=== PATIENT | female | born 1995 | race Caucasian/White ===

== ENCOUNTER 2021-12-28 14:04 | Inpatient (IN) | payer BC ==
[2021-12-28] MEDS ORDERED: Ondansetron 4 MG/2 ML SDV IVPUSH PRN (14:13)
[2021-12-28] MEDS ORDERED: Sodium Chloride 0.9% 10 ML Syringe FLUSH PRN (14:13)
[2021-12-28] MEDS ORDERED: Nalbuphine HCl 10 MG/ 1ML Amp IVPUSH PRN (14:13)
[2021-12-28] MEDS ORDERED: Oxytocin/Lactated Ringers 10 UNIT/1,000 ML BAG IV SCH ×2 (14:15→21:00)
[2021-12-28] MEDS ORDERED: Misoprostol 25 MCG (1/4 of 100 MCG) Tab VAG ONE (15:30)
[2021-12-28] MEDS: LABETALOL 100 MG PO SCH (21:00)
[2021-12-28] MEDS ORDERED: Levothyroxine 50 MCG Tab **OWN MED PO SCH (21:00)
[2021-12-28] MEDS ORDERED: LABETALOL 100 MG PO SCH (21:00)
[2021-12-28] MEDS ORDERED: Levothyroxine 50 MCG Tab PO SCH (21:00)
[2021-12-28] MEDS: Lactated Ringers 1,000 ML IV SCH (21:02)
[2021-12-28] MEDS: Sodium Chloride 0.9% 10 ML Syringe FLUSH SCH (21:05)
[2021-12-28] MEDS ORDERED: fentaNYL 100 MCG/2 ML SDV ONE (22:41)
[2021-12-28] MEDS ORDERED: Bupivacaine/fentaNYL/NS 100 ML Bag ONE (22:42)
[2021-12-28] MEDS ORDERED: fentaNYL 100 MCG/2 ML SDV EPIDUR PRN (23:43)
[2021-12-28] MEDS ORDERED: Bupivacaine/fentaNYL/NS 100 ML Bag EPIDUR PRN (23:43)
[2021-12-28] MEDS ORDERED: diphenhydrAMINE 50 MG/ML SDV IVPUSH PRN (23:43)
[2021-12-29] MEDS: Lactated Ringers 1,000 ML IV SCH (00:04)
[2021-12-29] MEDS: ePHEDrine 50 MG/ML SDV IVPUSH PRN ×5 (02:54→04:00)
[2021-12-29] MEDS ORDERED: Bupivacaine 0.25% 10 ML SDV ONE (07:00)
[2021-12-29] MEDS ORDERED: Docusate Sodium 100 MG Cap PO PRN (09:34)
[2021-12-29] MEDS ORDERED: Witch Hazel Medicated Pads 40/Jar TOP PRN (09:34)
[2021-12-29] MEDS ORDERED: Benzocaine/Menthol 20%-0.5% Spray 78 GM Cannister TOP PRN (09:34)
[2021-12-29] MEDS: LABETALOL 100 MG PO SCH (12:54)
[2021-12-29] MEDS: Sodium Chloride 0.9% 10 ML Syringe FLUSH SCH (12:56)
[2021-12-29] MEDS: Acetaminophen 325 MG Tab PO PRN (19:53)
[2021-12-30] MEDS: Acetaminophen 325 MG Tab PO PRN ×3 (03:31→17:57)
[2021-12-30] MEDS: Ibuprofen 600 MG Tab PO PRN ×4 (03:32→22:00)
== END 2021-12-31 08:55 | disposition home or self-care (01) | DRG 560 ==
LOC: JD.OBCHECK 14:04 → JD.OB 14:08 → JD.OBCHECK 14:22 → OBSVTOIN 12-29 07:59 → JD.OB 12-29 08:00 → EDSTATUS 01-07 14:03
PROVIDERS: ADMIT Obstetrics & Gynecology; ATTEND Obstetrics & Gynecology
PROC: 10E0XZZ Delivery of Products of Conception, External Approach (ICD-10-PCS; principal; 2021-12-29)
PROC: 0KQM0ZZ Repair Perineum Muscle, Open Approach (ICD-10-PCS; 2021-12-29)
PROC: 3E0R3BZ Introduction of Anesthetic Agent into Spinal Canal, Percutaneous Approach (ICD-10-PCS; 2021-12-29)
PROC: 00HU33Z Insertion of Infusion Device into Spinal Canal, Percutaneous Approach (ICD-10-PCS; 2021-12-29)
DX: O13.4 Gestational [pregnancy-induced] hypertension without significant proteinuria, complicating childbirth (principal); Z37.0 Single live birth; O70.1 Second degree perineal laceration during delivery; Z3A.38 38 weeks gestation of pregnancy; O99.284 Endocrine, nutritional and metabolic diseases complicating childbirth; E03.9 Hypothyroidism, unspecified
CPT/HCPCS: 36415; 51702; 59025; 59409; 82565; 82570; 83615; 84156; 84450; 84460; 84520; 84550; 85025; 86592; 86850; 86900; 86901; A9270-GY; C1726; J2590; J3010; J3490; J7120

== ENCOUNTER 2023-05-20 03:06 | Inpatient (IN) | payer BC ==
[2023-05-20] MEDS ORDERED: Lidocaine 1% 10 ML MDV ONE (08:00)
[2023-05-20] MEDS ORDERED: Nalbuphine HCl 10 MG/ 1ML Amp IVPUSH PRN (19:11)
[2023-05-20] MEDS ORDERED: Sodium Chloride 0.9% 10 ML Syringe FLUSH PRN (19:11)
[2023-05-20] MEDS ORDERED: Lidocaine 1% 50 ML MDV INJECT PRN (19:11)
[2023-05-20] MEDS ORDERED: Ondansetron 4 MG/2 ML SDV IVPUSH PRN (19:11)
[2023-05-20] MEDS ORDERED: Oxytocin/Lactated Ringers 30 UNIT/500 ML BAG IV SCH ×2 (19:15)
[2023-05-20 19:30] LABS: BASOPHILS PERCENT AUTO 0.5 % (0.0-1.0); EOSINOPHILS ABSOLUTE AUTO 0.1 K/mm3 (0.0-0.4); HEMATOCRIT 37.1 % (37.0-47.0); HEMOGLOBIN 12.8 gm/dl (12.0-16.0); IMMATURE GRAN ABSOLUTE AUTO 0.11 K/mm3 (0.00-0.05); IMMATURE GRAN PERCENT AUTO 1.2 % (0.0-0.4); LYMPHOCYTES PERCENT AUTO 22.1 % (24.0-44.0); MEAN CORPUSCULAR HEMOGLOBIN 31.3 pg (28.0-32.0); MEAN CORPUSCULAR HGB CONC 34.5 g/dl (32.0-36.0); MEAN CORPUSCULAR VOLUME 90.7 fl (83.0-99.0); MEAN PLATELET VOLUME 8.9 fl (9.4-12.3); MONOCYTES ABSOLUTE AUTO 0.4 K/mm3 (0.0-0.8); MONOCYTES PERCENT AUTO 4.8 % (0.0-8.0); NEUTROPHILS ABSOLUTE AUTO 6.2 K/mm3 (1.8-7.7); NEUTROPHILS PERCENT AUTO 70.4 % (41.0-71.0); PLATELET COUNT,PLT 195 K/mm3 (150-400); RED BLOOD CELL COUNT 4.09 M/mm3 (4.10-5.30); WHITE BLOOD CELL COUNT,WBC 8.83 K/mm3 (3.9-11.3)
[2023-05-20 19:58] LABS: ALANINE AMINOTRANSFERASE,ALT 19 U/L (14-59); ASPARTATE AMNIOTRANSFERASE,AST 15 U/L (15-37); CREATININE 0.7 mg/dL (0.55-1.02); ESTIMATED GFR 121 mL/min (>60)
[2023-05-20] MEDS: Lactated Ringers 1,000 ML IV SCH (20:02)
[2023-05-20 20:32] LABS: CREATININE,URINE RAND 78.3 mg/dL (30.0-125.0); PROTEIN CREATININE RATIO,URINE 97.1 mg/g (0-149); PROTEIN,URINE RANDOM 7.6 mg/dL (0.0-11.8)
[2023-05-20] MEDS ORDERED: Sodium Chloride 0.9% 10 ML Syringe FLUSH SCH (21:00)
[2023-05-21] MEDS ORDERED: Phenylephrine 1% 10 MG/ML SDV IVPUSH PRN (00:14)
[2023-05-21] MEDS ORDERED: ePHEDrine 50 MG/ML SDV IVPUSH PRN (00:14)
[2023-05-21] MEDS ORDERED: fentaNYL 100 MCG/2 ML SDV EPIDUR PRN (00:14)
[2023-05-21] MEDS ORDERED: diphenhydrAMINE 50 MG/ML SDV IVPUSH PRN (00:14)
[2023-05-21] MEDS ORDERED: Bupivacaine/fentaNYL/NS 100 ML Bag EPIDUR PRN (00:14)
[2023-05-21] MEDS: Lactated Ringers 1,000 ML IV SCH (01:10)
[2023-05-21] MEDS ORDERED: Benzocaine/Menthol 20%-0.5% Spray 78 GM Cannister TOP PRN (03:33)
[2023-05-21] MEDS ORDERED: Acetaminophen 325 MG Tab PO PRN (03:33)
[2023-05-21] MEDS ORDERED: Docusate Sodium 100 MG Cap PO PRN (03:33)
[2023-05-21] MEDS ORDERED: Witch Hazel Medicated Pads 40/Jar TOP PRN (03:33)
[2023-05-21] MEDS ORDERED: Ibuprofen 600 MG Tab PO PRN (03:33)
[2023-05-21] MEDS: Labetalol 100 MG Tab PO SCH ×2 (20:58→23:28)
[2023-05-21] MEDS ORDERED: Levothyroxine 50 MCG Tab PO SCH (21:00)
== END 2023-05-22 10:17 | disposition home or self-care (01) | DRG 560 ==
LOC: JD.OB 03:06 → OBSVTOIN 05-21 03:06 → JD.OB 05-21 03:07
PROVIDERS: ADMIT Obstetrics & Gynecology; ATTEND Obstetrics & Gynecology
PROC: 10E0XZZ Delivery of Products of Conception, External Approach (ICD-10-PCS; principal; 2023-05-21)
PROC: 10907ZC Drainage of Amniotic Fluid, Therapeutic from Products of Conception, Via Natural or Artificial Opening (ICD-10-PCS; 2023-05-21)
PROC: 3E033VJ Introduction of Other Hormone into Peripheral Vein, Percutaneous Approach (ICD-10-PCS; 2023-05-21)
PROC: 3E0R3BZ Introduction of Anesthetic Agent into Spinal Canal, Percutaneous Approach (ICD-10-PCS; 2023-05-21)
PROC: 00HU33Z Insertion of Infusion Device into Spinal Canal, Percutaneous Approach (ICD-10-PCS; 2023-05-21)
PROC: 0HQ9XZZ Repair Perineum Skin, External Approach (ICD-10-PCS; 2023-05-21)
DX: O16.4 Unspecified maternal hypertension, complicating childbirth (principal); Z37.0 Single live birth; O99.284 Endocrine, nutritional and metabolic diseases complicating childbirth; E03.9 Hypothyroidism, unspecified; O70.0 First degree perineal laceration during delivery; Z3A.39 39 weeks gestation of pregnancy; Z91.048 Other nonmedicinal substance allergy status; Z88.8 Allergy status to other drugs, medicaments and biological substances; Z90.89 Acquired absence of other organs; Z98.890 Other specified postprocedural states
CPT/HCPCS: 36415; 51702; 59025; 59409; 82565; 82570; 84156; 84450; 84460; 85025; 86592; 86850; 86900; 86901; J3010; J3490; J7120; J7999